=== PATIENT | male | born 1950 | race Caucasian/White ===

== ENCOUNTER → 2017-02-14 | Outpatient (CLI) | payer OTHER | LOC: MMPC 09:00 | DX: I10 Essential (primary) hypertension (principal); G62.9 Polyneuropathy, unspecified; F17.210 Nicotine dependence, cigarettes, uncomplicated; Z86.010 Personal history of colon polyps; I45.3 Trifascicular block | CPT/HCPCS: 99213; G0463; J3420 ==

== ENCOUNTER → 2017-02-28 | Outpatient (CLI) | payer OTHER | LOC: MMPC 09:00 | DX: L72.0 Epidermal cyst (principal) | CPT/HCPCS: 99213; G0463 ==

== ENCOUNTER → 2017-03-17 | Outpatient (CLI) | payer OTHER | LOC: MMPC 09:00 | DX: L72.0 Epidermal cyst (principal) | CPT/HCPCS: 11423 ×2; G0463 ==

== ENCOUNTER → 2017-03-24 | Outpatient (CLI) | payer OTHER | LOC: MMPC 11:11 | DX: E53.8 Deficiency of other specified B group vitamins (principal) | CPT/HCPCS: G0463; J3420 ==

== ENCOUNTER → 2017-04-04 | Outpatient (CLI) | payer OTHER | LOC: MMPC 11:11 | PROVIDERS: ATTEND Surgery | DX: Z86.010 Personal history of colon polyps (principal) | CPT/HCPCS: 99202; G0463 ==

== ENCOUNTER 2017-04-14 09:11 | Day surgery (SDC) | payer OTHER ==
[~2017-04-14 09:11] MED LIST: LIDOCAINE W/ SODIUM BICARB 0.5 ML SYR ONE; Lactated Ringers 1,000 ML PRIMARY IV ONE; MIDAZOLAM 5 MG/1 ML ONE; fentaNYL Inj 100 MCG/2 ML VIAL ONE
--- NOTE | 2017-04-14 11:05 | GEN.OPNOTE ---
Colonoscopy Procedure Note Surgery Date: 04/14/17 Preoperative Diagnosis: Personal history of colon polyps. Postoperative Diagnosis: Personal history of colon polyps. Procedure: Colonoscopy with biopsy and hot destruction of multiple colon polyps. Surgeon: Aravind Zmabrano MD Anesthesia Provider: Segun Mccall CRNA Anesthesia Type: MAC Indications: Patient has a personal history of colon polyps. On the last colonoscopy they were all hyperplastic. On previous colonoscopies they were adenomatous. Findings: Prep : [Good] Cecum : [Normal] Ascending : [Normal] Transverse : [Small polyp at the hepatic flexure biopsied and destroyed] Sigmoid : [Scattered diverticuli. There was a sigmoid colon polyp which was biopsied and destroyed. Several other polyps at 25 cm were biopsied and then destroyed with hot forceps] Rectum : [Normal.] Digital Rectal Exam : [No significant perianal pathology. Prostate of normal size and consistency.] A lubricated flexible colonoscope was inserted and passed to the blind end of the cecum. The blind end of the cecum and ileocecal valve were clearly seen. Air was aspirated as the scope was withdrawn. The prep was good as well as was the visualization. There was a small polyp at the hepatic flexure which was biopsied with the cold biopsy forceps and destroyed. In the sigmoid colon there was a small polyp which was biopsied and destroyed. There were 2 polyps at 25 cm which were biopsied and then destroyed with a hot biopsy forcep. There were several scattered diverticuli in the sigmoid colon. Otherwise the colonoscopy was normal without any other pathology identified. The scope was withdrawn completing the procedure. The patient tolerated the procedure well without complication. He was taken to outpatient surgery in stable condition. Follow-up will be with my office on an as-needed basis. We will call the biopsy results when available and plan therapy and follow-up accordingly.
[2017-04-14 13:19] VITALS: RESP 16
[2017-04-14 13:20] VITALS: TEMP 97.7
== END 2017-04-14 11:45 | disposition home or self-care (01) ==
LOC: SDSC 09:11
PROVIDERS: ATTEND Surgery
DX: Z86.010 Personal history of colon polyps (principal); D12.3 Benign neoplasm of transverse colon; D12.5 Benign neoplasm of sigmoid colon
CPT/HCPCS: 00810; 45384 ×2; 88305; J2704; J3010; J2250; J7120

== ENCOUNTER → 2017-04-18 | Outpatient (CLI) | payer OTHER | LOC: MMPC 11:11 | DX: I10 Essential (primary) hypertension (principal); I45.3 Trifascicular block; I48.2 Chronic atrial fibrillation; Z86.010 Personal history of colon polyps; F17.210 Nicotine dependence, cigarettes, uncomplicated | CPT/HCPCS: 99213; G0463 ==

== ENCOUNTER 2017-05-14 12:30 | Emergency (ER) | payer OTHER ==
[2017-05-14] MEDS ORDERED: Sodium Chloride 0.9% 1,000 ML PRIMARY IV ONE ×2 (12:52→13:24)
[2017-05-14] MEDS ORDERED: NORMAL SALINE 10 ML SYRINGE FLUSH IVP PRN (12:52)
[2017-05-14 13:02] LABS: BASOPHILS # (AUTO) 0.08 10*3/UL; BASOPHILS % (AUTO) 0.7 % (0-1); EOSINOPHILS # (AUTO) 0.34 10*3/UL; EOSINOPHILS % (AUTO) 2.8 % (0-8); HEMATOCRIT 56.3 % (42.0-52.0); HEMOGLOBIN 19.3 g/dL (14.0-18.0); LYMPHOCYTES # (AUTO) 2.37 10*3/uL; MEAN CORPUSCULAR HEMOGLOBIN 32.1 PG (27-31); MEAN CORPUSCULAR HGB CONC 34.3 g/dL (33-37); MEAN CORPUSCULAR VOLUME 93.7 FL (80-90); MEAN PLATELET VOLUME 12.1 FL (7.4-12.2); MONOCYTES # (AUTO) 0.77 10*3/UL (0.3-0.8); MONOCYTES % (AUTO) 6.3 % (5-15); NEUTROPHILS # (AUTO) 8.66 10*3/UL; NEUTROPHILS % (AUTO) 70.7 % (50-80); RED BLOOD COUNT 6.01 10^6/uL (4.70-6.10)
[2017-05-14 13:03] LABS: PLATELET MORPHOLOGY COMMENT NORMAL MORPHOLOGY (NORM); RBC MORPHOLOGY COMMENT NORMAL MORPHOLOGY (NORM); WBC MORPHOLOGY COMMENT NORMAL MORPHOLOGY (NORM)
[2017-05-14 13:06] VITALS: RESP 18; TEMP 97.3
[2017-05-14 13:07] LABS: BLOOD UREA NITROGEN 18 mg/dL (7-22); C-REACTIVE PROTEIN 0.9 mg/dL (0.0-0.9); CALCIUM 9.1 mg/dL (8.7-10.7); EST GLOMERULAR FILTRATION > 60 (>60 ml/min/1.73m(2)); LIPASE 120 IU/L (23-300); SERUM ALBUMIN 3.8 g/dL (3.5-4.8)
[2017-05-14] MEDS ORDERED: Pantoprazole Inj 40 MG in Normal Saline Flush 10 ML IVP ONE (13:23)
--- NOTE | 2017-05-14 13:44 | PDOC ---
General Adult HPI - General Chief Complaint: Nausea / Vomiting / Diarrhea Stated Complaint: diarrhea x 4days Date Seen by Provider: 05/14/17 Time Seen by Provider: 12:40 Source: POSITIVE: Patient Exam Limitations: POSITIVE: No limitations Nurse's Notes Reviewed & Considered: Yes - History of Present Illness Initial Comment: The patient is a 66-year-old male who presents to the emergency department with lightheadedness. He reports that for the past 4 days he has had significant diarrhea. He states that he has been having loose watery stools, multiple times per hour. He states that every time he attempts to eat or drink anything he develops abdominal cramping and diarrhea. This morning he started to feel somewhat better and was able to keep down some tea. The frequency of his diarrhea seems to have decreased and he is not currently having any abdominal pain or cramping. He tried to go out and mow the lawn however became very lightheaded and dizzy. He denies any chest pain or shortness of breath, numbness or weakness in his extremities or any other associated symptoms. He has lightheaded especially with standing. On arrival he was orthostatic. He denies any previous abdominal surgery. He does take medication for high blood pressure in did take his medication today. Have you received a tetanus shot in the past 10 years?: Unknown - Patient Home Medications Home Medications: Home Medications Aspirin 1 tab PO QD #30 tab 09/12/12 JPM-Cyanocobalamin [Jpm - Vitamin B-12 Inj] 1,000 mcg IM MONTHLY ml 06/04/14 Lisinopril 1 tab PO DAILY #90 tab 03/21/17 Metoprolol Succinate 1 tab PO QD #90 tab 03/21/17 - Patient Allergies Allergies/Adverse Reactions: Allergies Allergy/AdvReac Type Severity Reaction Status Date / Time No Known Allergies Allergy Verified 05/14/17 12:41 Past Medical History - heen HEENT History: Denies History, Dentures/Partials Cardiovascular History: Hypertension Additional Cardiovasular History: PAT Respiratory History: Denies History Gastrointestinal History: Denies History Additional Gastrointestinal History: HX OF POLYPS Genitourinary History: Denies History Endocrine History: Denies History Musculoskeletal History: Arthritis, Back Pain, Joint Pain Prosthesis or Implant: No Neurological History: Denies History Blood Disorders: Denies History, Other (please comment) Additional Blood Disorders History: gets B12 inj. (His daughter told him because he drinks too much beer) Psychiatric History: Denies History History of Sexually Transmitted Diseases: No Male Reproductive History: Denies History Cancer History: Denies History, Skin In Past Year Been Physically Harmed or Verbally Threatened: No History of MDRO: No History of Other Communicable Diseases: No Tobacco Use: Current Every Day Smoker Alcohol Use: Other Type of alcohol normally used: Beer Substance Use Type: None Previous Surgical History: Yes Type / Date of Surgery: FINGERTIP AVULSION/ CERVICAL DISCECTOMY X2/ COLONOSCOPY / CORONARY ANGIOGRAM/ EGD/ BILAT KNEE SCOPE/ CYST EXCISED FROM CERVICAL SPINE Anesthesia Reactions: No Malignant Hyperthermia: No Significant Family History: Heart disease, Cancer, Seizures Past Medical History Reviewed: Reviewed - No Changes ROS - Limitations ROS Limitations: No Limitations Constitution: REPORTS: Chills. DENIES: Fever Cardiovascular: DENIES: Chest Pain, Heart Palpitations, Edema Respiratory: REPORTS: Denies Resp Symptoms. DENIES: Shortness Of Breath Neurological: REPORTS: Dizziness. DENIES: Headache, Numbness, Fainting, Weakness Gastrointestinal: REPORTS: Abdominal Pain (Cramping abdominal pain the last 4 days), Nausea, Diarrhea (Loose watery stool). DENIES: Vomitting, Black Stools, Bloody Stools Endocrine: REPORTS: Fatigue Musculoskeletal: REPORTS: Denies MS Symptoms Eyes: REPORTS: Denies Symptoms ENT: REPORTS: Denies Symptoms Skin: DENIES: Rash General Adult Exam - General Appearance General Appearance: POSITIVE: Alert, Cooperative, No Acute Distress - HEENT HEENT: POSITIVE: Head Inspection Nml, Eyes Inspection Nml, Ears Inspection Nml, Dry Mucous Membranes - Neck Neck: POSITIVE: Normal Inspection - Respiratory Respiratory: POSITIVE: No Respiratory Distress, Breath Sounds Normal - Cardiovascular Cardiovascular: POSITIVE: Regular Rate & Rhythm, No Murmur - Abdomen Abdomen: Soft: (All Quadrants), Normal Bowel Sounds: (All Quadrants), Denies Tenderness: (All Quadrants), No Palpabale Mass: (All Quadrants), No Distention: (All Quadrants) Additional Abdominal Details: His abdominal exam on arrival was completely benign - Skin Skin: POSITIVE: Normal Color, No Rash - Extremities Extremity: Normal ROM: (All Extremities), Normal Inspection: (All Extremities) - Neurological / Psychological Neurological: POSITIVE: Oriented X3, soft mud molder Normal As Tested, Motor Normal, Sensation Normal General Adult Progress - Results Reviewed by me Lab Results Reviewed: Yes Lab Results:: Laboratory Results 05/14/17 Range/Units 12:36 WBC 12.25 H (4.8-10.8) 10^3/uL RBC 6.01 (4.70-6.10) 10^6/uL Hgb 19.3 H (14.0-18.0) g/dL Hct 56.3 H (42.0-52.0) % MCV 93.7 H (80-90) FL MCH 32.1 H (27-31) PG MCHC 34.3 (33-37) g/dL RDW Std Deviation 43.4 (39-50) fL RDW Coeff of Sudhir 12.9 (11.5-14.5) % Plt Count 221 (140-350) 10*3/uL MPV 12.1 (7.4-12.2) FL Immature Gran % (Auto) 0.2 (0-5) % Neut % (Auto) 70.7 (50-80) % Lymph % (Auto) 19.3 (10-50) % Mcdowell % (Auto) 6.3 (5-15) % Eos % (Auto) 2.8 (0-8) % Baso % (Auto) 0.7 (0-1) % Immature Gran # (Auto) 0.03 10*3/UL Neut # (Auto) 8.66 10*3/UL Lymph # (Auto) 2.37 10*3/uL Mcdowell # (Auto) 0.77 (0.3-0.8) 10*3/UL Eos # (Auto) 0.34 10*3/UL Baso # (Auto) 0.08 10*3/UL WBC Morphology Comment Normal morphology (NORM) Plt Morphology Comment Normal morphology (NORM) RBC Morph Comment Normal morphology (NORM) Sodium 137 (135-145) meq/L Potassium 4.1 (3.8-5.2) meq/L Chloride 105 (98-112) meq/L Carbon Dioxide 20 L (23-33) meq/L Anion Gap 12 (5-20) BUN 18 (7-22) mg/dL Creatinine 1.2 (0.70-1.50) mg/dL Estimated GFR > 60 (>60 ml/min/1.73m(2)) BUN/Creatinine Ratio 15.00 (6-20) Glucose 118 H (78-110) mg/dL Calculated Osmolality 286.0 (267-292) mOsm/kg Calcium 9.1 (8.7-10.7) mg/dL Magnesium 2.0 (1.6-2.4) mg/dL Total Bilirubin 0.7 (0.3-1.2) mg/dL AST 34 (21-57) IU/L ALT 33 (21-72) IU/L Alkaline Phosphatase 87 (38-126) IU/L C-Reactive Protein 0.9 (0.0-0.9) mg/dL Total Protein 6.8 (6.1-8.0) g/dL Albumin 3.8 (3.5-4.8) g/dL Globulin 3.0 (2.50-4.10) g/dL Albumin/Globulin Ratio 1.20 L (1.3-2.0) mg/g Amylase 77 (30-110) U/L Lipase 120 (23-300) IU/L - Patient's Progress MDM / ED Course: The patient was orthostatic on arrival and appeared to be clinically dehydrated. His abdominal exam is benign. An IV was established and he was given a 1 L bolus of normal saline after which he was feeling significantly better. He received a second liter as well as IV Protonix 40 mg IV. His blood work revealed a mildly elevated white count, elevated hematocrit and slightly elevated creatinine above his baseline. His clinical presentation is consistent with dehydration with associated orthostatic hypotension likely secondary to the diarrhea. Clinically his diarrhea seems to be improving and his abdominal exam is benign. This may represent a viral syndrome. After administration of 2 L of fluid repeat orthostatics revealed a mild elevation in pulse from lying to sitting and standing with no change in blood pressure, he no longer felt lightheaded with standing. He is advised to push fluids and will return to the emergency room if he develops increased abdominal pain, lightheadedness or passing out, any worsening or change in symptoms. He is advised follow-up with primary care if continued symptoms in 2-3 days. - Consult Counseled: POSITIVE: Patient, RE: Lab Results, RE: DX, RE: Need for F/U Patient Care Time - Estimated PCT Patient Care Time (In Minutes): 25 Vital Signs - Recent Vital Signs Vital Signs: Vital Signs (Last 8 hours) Temp Pulse Pulse Pulse Pulse Resp BP 05/14/17 14:00 91 94 91 95/58 05/14/17 12:38 97.3 F 104 H 110 H 110 H 116 H 18 111/90 BP BP Pulse Ox 05/14/17 14:00 100/67 95/58 05/14/17 12:38 107/89 72/53 92 - VS Reviewed Vital Signs Reviewed: Yes Discharge Clinical Impression: Diarrhea, Dehydration Discharge Disposition: Discharged to Home Patient Instructions Given at Discharge: Dehydration (ED), Acute Diarrhea (ED) Additional Instructions: The lightheadedness that you are experiencing is secondary to dehydration from the diarrhea that you have had the past few days along with decreased oral intake. Because the diarrhea has improved in your abdominal pain has improved it is unlikely that you have significant infection and this may represent a stomach flu. Recommend that she push fluids, bland diet until feeling better, can advance diet as tolerated. Take Prilosec 20 mg daily for 2 weeks Return to the emergency room if he develops increased abdominal pain, increased dehydration, fever, any worsening or change in symptoms. Recommend follow-up with primary care if continued symptoms in 2-3 days. Follow Up With: EDWIN MARCANO [Primary Care Provider] -
== END 2017-05-14 14:20 | disposition home or self-care (01) ==
LOC: ER 12:30
DX: R19.7 Diarrhea, unspecified (principal); E86.0 Dehydration; R10.84 Generalized abdominal pain; R42 Dizziness and giddiness
CPT/HCPCS: 80053; 82150; 83690; 83735; 85025; 86140; 96361; 96374; 99282; 99283; J3490; J7030

== ENCOUNTER → 2017-06-05 | Outpatient (CLI) | payer OTHER | LOC: MMPC 11:11 | DX: E53.8 Deficiency of other specified B group vitamins (principal) | CPT/HCPCS: G0463; J3420 ==